=== PATIENT | female | born 1965 | race Caucasian/White ===

== ENCOUNTER 2016-12-10 14:07 | Inpatient (IN) | payer MEDICAID ==
[~2016-12-10] VITALS: Ht 167.6 cm; Wt 45.4 kg
[2016-12-10] MEDS: Potassium Chloride 20 MEQ in IV D5/ 0.9% NACL 1,000 ML IV SCH ×2 (00:13→20:30)
--- NOTE | 2016-12-10 14:10 | NUR ---
PT BIBA FOR NON-RADIATING CHEST PAIN/PRESSURE LIKE X FEW DAYS. PT CURRENTLY RECEIVED CHEMOTHERAPY AND IS AWARE THAT THAT IS AN EXPECTED SIDE EFFECT. NOTED WITH GENERALIZED WEAKNESS. PT AAOX3. SAFETY AND COMFORT MEASURES PROVIDED. WILL MONITOR.
[2016-12-10] MEDS ORDERED: ONDANSETRON HCL/PF 4 MG/2 ML VIAL ONE ×3 (14:22→23:59)
[2016-12-10] MEDS ORDERED: IV NS 0.9% 1,000 ML ONE (14:22)
[2016-12-10] MEDS ORDERED: ONDANSETRON HCL/PF 4 MG/2 ML VIAL IVP ONE (14:30)
[2016-12-10] MEDS ORDERED: IV NS 0.9% 1,000 ML BAG IV ONE (14:30)
--- NOTE | 2016-12-10 14:39 | NUR ---
PT MEDICATED ORDERED.
[2016-12-10 14:44] LABS: BASOPHILS % (AUTO) 0.9 % (0.0-2.0); EOSINOPHILS # (AUTO) 0.1 /CMM (0.0-0.7); EOSINOPHILS % (AUTO) 2.1 % (0.0-6.0); HEMATOCRIT 38 % (33-45); HEMOGLOBIN 12.4 g/dL (11.5-14.8); LYMPHOCYTES # (AUTO) 0.5 /CMM (0.8-4.8); LYMPHOCYTES % (AUTO) 16.2 % (20.0-44.0); MEAN CORPUSCULAR HEMOGLOBIN 30 PG (26.0-33.0); MEAN CORPUSCULAR HGB CONC 32 g/dl (31.0-36.0); MEAN CORPUSCULAR VOLUME 93 fL (82-100); MONOCYTES # (AUTO) 0.1 /CMM (0.1-1.30); MONOCYTES % (AUTO) 1.8 % (2.0-12.0); NEUTROPHILS # (AUTO) 2.5 /CMM (1.8-8.9); PLATELET COUNT (AUTO) 210 /CMM (150-450); RDW COEFFICIENT OF VARIATION 12.4 (11.5-15.0); RED BLOOD CELL COUNT(AUTO) 4.11 MIL/uL (4.0-5.2); WHITE BLOOD COUNT (AUTO) 3.2 K/uL (4.3-11.0)
[2016-12-10 15:05] LABS: TROPONIN I < 0.017 ng/mL (0.00-0.056)
[2016-12-10 15:09] LABS: ALANINE AMINOTRANSFERASE 7 U/L (12-78); ALBUMIN 3.4 g/dL (3.4-5.0); ALKALINE PHOSPHATASE 66 U/L (46-116); ASPARTATE AMINOTRANSFERASE 13 U/L (15-37); B-TYPE NATRIURETIC PEPTIDE 92 PG/ML (0-125); BILIRUBIN,DIRECT 0.2 mg/dL (0.0-0.2); BILIRUBIN,TOTAL 0.7 mg/dL (0.2-1.0); CALCIUM, SERUM 9.3 mg/dL (8.5-10.1); CARBON DIOXIDE 27 mmol/L (21-32); CHLORIDE 96 mmol/L (98-107); CREATININE 0.6 mg/dL (0.6-1.3); GLUCOSE 105 mg/dL (74-106); SODIUM SERUM 138 mmol/L (136-145); TOTAL PROTEIN, SERUM 6.9 g/dL (6.4-8.2); UREA NITROGEN, BLOOD 16 mg/dL (7-18)
[2016-12-10 15:13] LABS: POTASSIUM 2.7 mmol/L (3.5-5.1)
[2016-12-10] MEDS ORDERED: POTASSIUM CL. PREMIX PERIPHER. 200 ML ONE (15:17)
[2016-12-10] MEDS ORDERED: IV SET PRIMARY PUMP SET 1 EA INFUS.SET MC ONE (15:17)
[2016-12-10] MEDS ORDERED: Magnesium 1GM/D5W 100ML PREMIX 200 ML IV ONE (15:18)
[2016-12-10] MEDS ORDERED: POTASSIUM CHLORIDE 20 MEQ TAB.PRT.SR PO ONE ×2 (15:18→15:30)
[2016-12-10 15:29] LABS: D-DIMER 0.69 mg/L(FEU (0.17-0.50); PROTHROMBIN TIME 10.7 SECS (9.5-12.7)
[2016-12-10] MEDS: POTASSIUM CL. PREMIX PERIPHER. 50 ML IV SCH ×4 (15:30→22:45)
[2016-12-10] MEDS ORDERED: Magnesium 1 GM/2 ML VIAL IV ONE (15:30)
[2016-12-10 15:59] LABS: BAND % (MANUAL) 3 % (0.0-5.0); LYMPHOCYTES % (MANUAL) 15 % (16-48); MONOCYTES % (MANUAL) 2 % (0-11.0); NEUTROPHILS % (MANUAL) 80 (42-76)
[2016-12-10] MEDS ORDERED: IOHEXOL-350 100 ML VIAL IV ONE (16:25)
[2016-12-10] MEDS ORDERED: IV NS 0.9% 250 ML IV ONE ×2 (16:25→20:15)
[2016-12-10] MEDS ORDERED: CT SWABBABLE VALVE TRANS SET 1 EA INFUS.SET MC ONE (16:25)
--- NOTE | 2016-12-10 16:34 | NUR ---
PT TAKEN TO CT.
--- NOTE | 2016-12-10 17:01 | NUR ---
PAGED LORETTA RUFF.
--- NOTE | 2016-12-10 17:23 | NUR ---
REPORT GIVEN TO OLAMIDE BOLES FOR TELE ROOM 327-2.
--- NOTE | 2016-12-10 17:24 | NUR ---
ENDORSED 2 KCL BAGS TO OLAMIDE BOLES PER PROTOCOL FOR CONTINUED ADMINISTRATION.
[2016-12-10 17:30] VITALS: BP 121/84
--- NOTE | 2016-12-10 17:30 | NUR ---
TELE/DIESEL ENGINE FITTER PT. WAS ADMITTED IN STABLE CONDITION WITH VITAL SIGNS WNL. PT. IS BREATHING UNLABORED ON ROOM AIR. PT. WAS RECEIVED WITH IV FLUIDS POTASSIUM RUNNING AT 30 ML/HR AND MAGNESIUM 100ML/HR. PER ER NURSE WAS ENDORSED TO COMPLETE POTASSIUM ORDER AND WAS GIVEN 2 BAGS OF 10MEQ OF POTASSIUM. PT. WAS C/ O NAUSEA, AND RIGHT SIDED NECK PAIN.
--- NOTE | 2016-12-10 19:00 | NUR ---
MS RN INITIAL NOTE PT RECEIVED IN BED, NO S/S OF RESPIRATORY DISTRESS OR SOB. IV SITE INTACT WITH NO S/S OF INFILTRATION NOTED. SAFE ENVIRONMENT PROVIDED FREE OF CLUTTERS .BED IN LOCKED, LOW POSITION. CALL LIGHT WITHIN EASY REACH. WILL CONTINUE TO MONITOR. PER OLAMIDE BOLES SHE WILL GET AN ORDERS FROM DOCTOR
[2016-12-10 20:00] VITALS: BP 127/76
[2016-12-10] MEDS ORDERED: ZOLPIDEM TARTRATE 5 MG TABLET PO PRN (20:00)
[2016-12-10] MEDS ORDERED: ACETAMINOPHEN 650 MG/20.3 ML UDC NG PRN (20:00)
[2016-12-10] MEDS ORDERED: HYDROMORPHONE 1 MG/1 ML DISP.SYRIN ONE ×2 (20:14→23:58)
[2016-12-10] MEDS: ONDANSETRON HCL/PF 4 MG/2 ML VIAL IV PRN (20:22)
--- NOTE | 2016-12-10 20:24 | NUR ---
TELERN 2ND DOSE OF POTASSIUM BOLUS BAR CODED. WAS NOT BARCODED BY ER. PATIENT CAME WITH K INFUSING. INFORMED ER. ORDERS RECEIVED FROM DR. CROOK BY RN TO CONTINUE POTASSIUM PREMIX TOTAL OF 40 MEQ. ENDORSED TO INCOMING RN.
--- NOTE | 2016-12-10 20:31 | NUR ---
TELE/RN CLOSING NOTES CALLED DR. CROOK FOR NEW ADMISSION ORDERS. NEW PHONE ORDERS WERE GIVEN, AND INPUT INTO PT.'S CHART, AND IN EMAR. PT. IS ON TELE MONITOR READING SINUS RHYTHM 86 BPM. PT. IS AWAKE, A&OX4. BREATHING UNLABORED ON ROOM AIR. PT. HAS LEFT IV ACCESS RIGHT ANTECUBITAL SITE. NO S/S OF ACUTE DISTRESS. BED IS IN LOW POSITION, 2 SIDE RAILS UP, AND CALL LIGHT WITHIN REACH. WILL ENDORSE REPORT TO PATIENT SERVICE REPRESENTATIVE NURSE.
[2016-12-10] MEDS: HYDROMORPHONE 1 MG/1 ML DISP.SYRIN IV PRN (20:37)
[2016-12-10] MEDS: PANTOPRAZOLE 40 MG VIAL IV SCH (21:05)
[2016-12-10] MEDS ORDERED: KCL IV ONE (23:13)
[2016-12-10] MEDS ORDERED: NS IV ONE (23:13)
[2016-12-10] MEDS ORDERED: IV PREMIX D5 NS + KCL 1,000 ML IV ONE (23:55)
[2016-12-11] VITALS (7 sets, daily range): BP systolic 116–131; BP diastolic 69–84
[2016-12-11] MEDS: HYDROMORPHONE 1 MG/1 ML DISP.SYRIN IV PRN ×4 (00:09→20:51)
[2016-12-11] MEDS: Potassium Chloride 20 MEQ in IV D5/ 0.9% NACL 1,000 ML IV SCH ×2 (00:16→04:35)
--- NOTE | 2016-12-11 00:16 | NUR ---
D5 NS 0.9% SODIUM CHLORIDE WITH 20 MEQ OF K WAS ADMINISTERED AT 0016 PATIENT GOT HER 2 BAGS OF K PRIOR GIVING 1000L Addendum: 12/11/16 at 0350 by RAGINI SIMENTAL RN ADDENDUM: RUNNING AT 125 MLS/HR
[2016-12-11] MEDS: ONDANSETRON HCL/PF 4 MG/2 ML VIAL IV PRN ×5 (00:38→20:50)
[2016-12-11] MEDS ORDERED: HYDROMORPHONE 1 MG/1 ML DISP.SYRIN ONE (03:59)
[2016-12-11] MEDS ORDERED: ONDANSETRON HCL/PF 4 MG/2 ML VIAL ONE (04:00)
--- NOTE | 2016-12-11 05:02 | NUR ---
SYSTEMS AUDITOR NOTES NON ADMINISTRATION OF 1000L 1 BAG IV D5NS W/ K 20 MEQ DUE AT 0435, STILL INFUSING 1ST BAG 125 CC/HR THAT WAS TRANSFUSE AT 0016. WILL INFORMED THE PHARMACY, WAS DELAYED BECAUSE OF THE BOLUS OF POTASSIUM
--- NOTE | 2016-12-11 06:35 | NUR ---
PATIENT SUPPORT TECH CLOSING NOTES PATIENT COMFORTABLY IN BED ASLEEP AND EASILY AWAKEN, HEAD OF BED ELEVATED FOR BETTER LUNG EXPANSION AND GOOD CIRCULATION.ALERT AND VERBALLY X 4 ON D5NS W/ K 20 MEQ RUNNING AT 125MLS/HR. IV SITE INTACT WITH NO S.S OF INFILTRATION NOTED. NO S/S OF ACUTE DISTRESS. TOLERATING ROOM AIR 02 SAT 98 R.A RESPONDS APPROPRIATELY TO VERBAL STIMULI, RESPIRATIONS EVEN UNLABORED BREATH SOUNDS.PATIENT IN STABLE CONDITION WITH NO SOB NO S/S OF ACUTE DISTRESS SAFE HAZARD FREE ENVIRONMENT. NEEDS ATTENDED AND ANTICIPATED, NURSING CARE RENDERED, KEPT CLEAN AND DRY AND COMFORTABLE. ALL DUE MEDS WAS GIVEN. BED LOWERED AND LOCKED, SR X2 FOR SAFETY AND WILL ENDORSE CONTINUE PLAN OF CARE. ATTACH TO RECREATIONAL THERAPY TECHNICIAN, SR 71'S WITH 1ST AVB
[2016-12-11 06:42] LABS: BASOPHILS % (AUTO) 0.2 % (0.0-2.0); EOSINOPHILS % (AUTO) 2.3 % (0.0-6.0); HEMATOCRIT 34 % (33-45); HEMOGLOBIN 11.6 g/dL (11.5-14.8); LYMPHOCYTES # (AUTO) 0.3 /CMM (0.8-4.8); LYMPHOCYTES % (AUTO) 17.1 % (20.0-44.0); MEAN CORPUSCULAR HEMOGLOBIN 32 PG (26.0-33.0); MEAN CORPUSCULAR HGB CONC 35 g/dl (31.0-36.0); MEAN CORPUSCULAR VOLUME 92 fL (82-100); MONOCYTES # (AUTO) 0.1 /CMM (0.1-1.30); MONOCYTES % (AUTO) 4.3 % (2.0-12.0); NEUTROPHILS # (AUTO) 1.5 /CMM (1.8-8.9); NEUTROPHILS % (AUTO) 76.1 % (43.0-81.0); PLATELET COUNT (AUTO) 143 /CMM (150-450); RED BLOOD CELL COUNT(AUTO) 3.65 MIL/uL (4.0-5.2)
[2016-12-11 06:57] LABS: CALCIUM, SERUM 8.5 mg/dL (8.5-10.1); CREATININE 0.4 mg/dL (0.6-1.3)
[2016-12-11 07:25] LABS: POTASSIUM 2.8 mmol/L (3.5-5.1)
[2016-12-11 07:46] LABS: BAND % (MANUAL) 2 % (0.0-5.0); EOSINOPHILS % (MANUAL) 1 % (0-4); LYMPHOCYTES % (MANUAL) 18 % (16-48); MONOCYTES % (MANUAL) 8 % (0-11.0); NEUTROPHILS % (MANUAL) 71 (42-76)
[2016-12-11] MEDS ORDERED: MORP30TA7 PO (07:46)
[2016-12-11] MEDS ORDERED: OXYC1TAB72 PO (07:46)
--- NOTE | 2016-12-11 08:13 | NUR ---
TELE/RN OPENING NOTES PT. IS IN BED A&OX4. TELE MONITOR READING SINUS RHYTHM 66 BPM WITH OCCASIONAL BORDERLINE 1ST DEGREE AV BLOCK. BREATHING UNLABORED ON ROOM AIR. NO S/S OF ACUTE DISTRESS. IV FLUIDS RUNNING AT 125 ML/HR ON LEFT ANTECUBITAL SITE. LAB CALLED TO REPORT LOW POTASSIUM LEVEL, MD IS AWARE, AND PUT IN NEW ORDERS FOR POTASSIUM REPLACEMENT. PT.'S WBC IS 2.O, MD AWARE NO NEW ORDERS GIVEN, PER MD LOW WBC COUNT IS DUE TO CHEMOTHERAPY. BED IS IN LOW POSITION, 2 SIDE RAILS UP, AND CALL LIGHT IS WITHIN REACH. WILL CONTINUE TO ASSESS AND MONITOR.
[2016-12-11] MEDS ORDERED: IV SET PRIMARY PUMP SET 1 EA INFUS.SET MC ONE ×3 (11:37→17:42)
[2016-12-11] MEDS ORDERED: SECONDARY IV SET 1 EA INFUS.SET MC ONE ×2 (11:39→17:42)
[2016-12-11] MEDS ORDERED: IV NS 0.9% 250 ML IV ONE ×3 (11:39→18:42)
[2016-12-11] MEDS: Magnesium 1GM/D5W 100ML PREMIX 100 ML IV SCH ×2 (12:36→13:40)
[2016-12-11] MEDS: POTASSIUM CL. PREMIX PERIPHER. 50 ML IV SCH ×8 (12:36→21:56)
--- NOTE | 2016-12-11 19:25 | NUR ---
TELE/RN OPENING NOTES PT. IS IN BED A&OX4. TELE MONITOR READING SINUS RHYTHM 69 BPM. BREATHING UNLABORED ON ROOM AIR. NO S/S OF ACUTE DISTRESS. IV ACCESS IS PATENT AND INTACT ON LEFT ANTECUBITAL SITE. REPLACED 5 BAGS OF POTASSIUM, WILL ENDORSE TO STERILIZATION TECHNICIAN NURSE TO ADDITIONAL 3 BAGS TO COMPLETE ORDER. BED IS IN LOW POSITION, 2 SIDE RAILS UP, AND CALL LIGHT IS WITHIN REACH. Addendum: 12/11/16 at 1930 by OLAMIDE FISH RN TELE/RN CLOSING NOTES
--- NOTE | 2016-12-11 19:30 | NUR ---
MEDICAL SUPPORT SPECIALIST NOTE RECEIVED PATIENT FROM DAY SHIFT, PATIENT IS ALERT AND ORIENTEDX4, NO S/S OF RESPIRATORY DISTRESS OR PAIN AT THIS TIME. IV ON LEFT AC IS PATENT AND INTACT, POTASSIUM SUPPLEMENT IS RUNNING. TELE SR 66. SRX2, BED IN LOW POSITION, CALL LIGHT WITHIN REACH, WILL CONTINUE TO MONITOR PATIENT.
[2016-12-11] MEDS: PANTOPRAZOLE 40 MG VIAL IV SCH (19:46)
[2016-12-12] VITALS (7 sets, daily range): BP systolic 121–149; BP diastolic 69–94
[2016-12-12] MEDS: ONDANSETRON HCL/PF 4 MG/2 ML VIAL IV PRN ×6 (00:52→21:59)
[2016-12-12] MEDS: HYDROMORPHONE 1 MG/1 ML DISP.SYRIN IV PRN ×6 (00:52→21:59)
[2016-12-12] MEDS: Potassium Chloride 20 MEQ in IV D5/ 0.9% NACL 1,000 ML IV PRN ×2 (00:54→07:09)
--- NOTE | 2016-12-12 06:53 | NUR ---
DENTAL ASSOCIATE NOTE PATIENT IS RESTING IN BED COMFORTABLY, NO S/S OF RESPIRATORY DISTRESS OR PAIN AT THIS TIME .IV ON LEFT AC IS PATENT AND INTACT, FLUID IS RUNNING. TELE MONITOR SR 73. WILL ENDORSE TO DAY SHIFT FOR TRESA.
--- NOTE | 2016-12-12 07:15 | NUR ---
OPTOELECTRONIC TECHNICIAN NOTES RECEIVED PATIENT IN BED, AWAKE. A/O X4. APPEARS PALE, TOLERATING ROOM AIR, NO SOB. SINUS RHYTHM ON TELE MONITOR. IV IN LEFT AC G20 PATENT AND INTACT, ON IV D5 NS + KCL 20 MEQ INFUSING AT 125ML/HR. CALL LIGHT WITHIN REACH. WILL CONT TO MONITOR.
[2016-12-12 07:17] LABS: BASOPHILS % (AUTO) 0.4 % (0.0-2.0); EOSINOPHILS # (AUTO) 0.1 /CMM (0.0-0.7); EOSINOPHILS % (AUTO) 2.8 % (0.0-6.0); HEMATOCRIT 31 % (33-45); HEMOGLOBIN 10.8 g/dL (11.5-14.8); LYMPHOCYTES # (AUTO) 0.4 /CMM (0.8-4.8); LYMPHOCYTES % (AUTO) 21.8 % (20.0-44.0); MEAN CORPUSCULAR HEMOGLOBIN 32 PG (26.0-33.0); MEAN CORPUSCULAR HGB CONC 35 g/dl (31.0-36.0); MEAN CORPUSCULAR VOLUME 92 fL (82-100); MONOCYTES # (AUTO) 0.2 /CMM (0.1-1.30); MONOCYTES % (AUTO) 10.5 % (2.0-12.0); NEUTROPHILS # (AUTO) 1.2 /CMM (1.8-8.9); NEUTROPHILS % (AUTO) 64.5 % (43.0-81.0); PLATELET COUNT (AUTO) 103 /CMM (150-450); RED BLOOD CELL COUNT(AUTO) 3.37 MIL/uL (4.0-5.2)
[2016-12-12 07:21] LABS: CREATININE 0.3 mg/dL (0.6-1.3); MAGNESIUM 1.5 mg/dL (1.8-2.4); POTASSIUM 2.9 mmol/L (3.5-5.1)
[2016-12-12 07:29] LABS: WHITE BLOOD COUNT (AUTO) 1.9 K/uL (4.3-11.0)
[2016-12-12 08:34] LABS: BAND % (MANUAL) 6 % (0.0-5.0); EOSINOPHILS % (MANUAL) 4 % (0-4); LYMPHOCYTES % (MANUAL) 10 % (16-48); MONOCYTES % (MANUAL) 7 % (0-11.0); NEUTROPHILS % (MANUAL) 73 (42-76)
[2016-12-12] MEDS ORDERED: PANT40TA2 PO (09:20)
[2016-12-12] MEDS ORDERED: ONDA4TAB5 PO (09:21)
[2016-12-12] MEDS: Magnesium 1GM/D5W 100ML PREMIX 100 ML IV SCH ×2 (09:37→10:47)
[2016-12-12] MEDS ORDERED: SECONDARY IV SET 1 EA INFUS.SET MC ONE (09:37)
--- NOTE | 2016-12-12 09:48 | NUR ---
PATIENT IS SEEN BY DR. CROOK TODAY. REVIEWED CURRENT LAB RESULT WITH DR. CROOK, WILL REPLACE POTASSIUM AND MAGNESIUM TODAY, PER MD TO CHECK POTASSIUM LEVEL AT 2PM AND CALL HIM WITH RESULT. ALSO PER DR. CROOK PATIENT CAN GO HOME TODAY IF PATIENT TOLERATES FOOD AND NO NAUSEA AND VOMITING. PATIENT IS AWARE, WILL NOTIFY MD.
[2016-12-12] MEDS ORDERED: POTASSIUM CHLORIDE 20 MEQ TAB.PRT.SR PO SCH (10:00)
[2016-12-12] MEDS ORDERED: IV SET PRIMARY PUMP SET 1 EA INFUS.SET MC ONE (10:59)
[2016-12-12] MEDS: POTASSIUM CL. PREMIX PERIPHER. 50 ML IV SCH ×8 (12:08→19:59)
[2016-12-12] MEDS ORDERED: IV NS 0.9% 250 ML IV ONE ×2 (12:29→16:58)
--- NOTE | 2016-12-12 12:30 | NUR ---
PATIENT UNABLE TO TOLERATE PART OF THE SOFT DIET, C/O NAUSEA. PROVIDED SHERBERT, ICE TEA, AND CUP OF SLICES FRUITS PER PATIENT'S PREFERENCE AT THIS TIME. WILL CONT TO MONITOR.
[2016-12-12 14:38] LABS: CALCIUM, SERUM 8.3 mg/dL (8.5-10.1); CREATININE 0.3 mg/dL (0.6-1.3); POTASSIUM 3.2 mmol/L (3.5-5.1)
--- NOTE | 2016-12-12 15:06 | NUR ---
PATIENT IS SEEN BY CHANTELLE, PATIENT WILL START ON SMALL 6 MEALS.
--- NOTE | 2016-12-12 16:19 | NUR ---
CALLED SPOKE TO DR. CROOK WITH REPEAT BMP RESULT, POTASSIUM LEVEL 2.9 AND 4 MORE BAG OF POTASSIUM CHLORIDE TO BE INFUSED. PER DR. CROOK, CONTINUE MAIN IVF D5 NS + KCL 20 MEQ AFTER INFUSING POTASSIUM SUPP THEN BMP IN AM, PATIENT MAY DISCHARGE TOMORROW 12/13/16. INFORMED CHARGE NURSE, PATIENT MADE AWARE.
--- NOTE | 2016-12-12 18:32 | NUR ---
AGRISCIENCE TECHNOLOGY INSTRUCTOR CLOSING NOTES PATIENT IN BED, NOT IN DISTRESS. PAIN IS CONTROLLED DURING THE SHIFT, MEDICATED WITH PRN MEDS ORDERED. STILL WITH POOR APPETITE, WITH EPISODE OF VOMITING AND NAUSEA. REPLACING POTASSIUM ORDERED, AND WILL CONT MAIN IVF AFTER COMPLETING POTASSIUM REPLACEMENT. PATIENT TO BE DISCHARGED HOME TOMORROW 12/13/16, WILL ENDORSE TO FOOD PREPARER RN FOR CONTINUITY.
--- NOTE | 2016-12-12 19:30 | NUR ---
POWER BALLAST MACHINE OPERATOR NOTE RECEIVED PATIENT FROM DAY SHIFT, PATIENT IS ALERT AND ORIENTEDX4, NO S/S OF RESPIRATORY DISTRESS OR PAIN AT THIS TIME. IV ON LEFT FA IS PATENT AND INTACT, POTASSIUM SUPPLEMENT IS RUNNING. TELE SR 69. SRX2, BED IN LOW POSITION, CALL LIGHT WITHIN REACH, WILL CONTINUE TO MONITOR PATIENT.
[2016-12-12] MEDS: PANTOPRAZOLE 40 MG VIAL IV SCH (19:59)
[2016-12-13] VITALS: BP 122/80
[2016-12-13] MEDS: ONDANSETRON HCL/PF 4 MG/2 ML VIAL IV PRN ×4 (02:00→14:39)
[2016-12-13] MEDS: HYDROMORPHONE 1 MG/1 ML DISP.SYRIN IV PRN ×4 (02:00→14:39)
[2016-12-13 04:00] VITALS: BP 121/65
[2016-12-13] MEDS: Potassium Chloride 20 MEQ in IV D5/ 0.9% NACL 1,000 ML IV PRN (06:00)
--- NOTE | 2016-12-13 06:38 | NUR ---
PERFORMING ARTS ROAD MANAGER NOTE PATIENT IS RESTING IN BED COMFORTABLY, NO S/S OF RESPIRATORY DISTRESS OR PAIN AT THIS TIME. IV ON LEFT FA IS PATENT AND INTACT, FLUID IS RUNNING. TELE MONITOR SR 72. WILL ENDORSE TO DAY SHIFT FOR TRESA.
[2016-12-13 07:31] LABS: BASOPHILS % (AUTO) 0.5 % (0.0-2.0); EOSINOPHILS % (AUTO) 2.6 % (0.0-6.0); HEMATOCRIT 32 % (33-45); HEMOGLOBIN 10.8 g/dL (11.5-14.8); LYMPHOCYTES # (AUTO) 0.4 /CMM (0.8-4.8); MEAN CORPUSCULAR HEMOGLOBIN 32 PG (26.0-33.0); MEAN CORPUSCULAR HGB CONC 34 g/dl (31.0-36.0); MEAN CORPUSCULAR VOLUME 93 fL (82-100); MONOCYTES # (AUTO) 0.3 /CMM (0.1-1.30); MONOCYTES % (AUTO) 20.1 % (2.0-12.0); NEUTROPHILS # (AUTO) 0.9 /CMM (1.8-8.9); NEUTROPHILS % (AUTO) 53.8 % (43.0-81.0); PLATELET COUNT (AUTO) 91 /CMM (150-450); RDW COEFFICIENT OF VARIATION 12.8 (11.5-15.0); RED BLOOD CELL COUNT(AUTO) 3.42 MIL/uL (4.0-5.2)
--- NOTE | 2016-12-13 07:47 | NUR ---
OIL EXPLORATION ENGINEER NOTES PATIENT IN BED, A/O 4, VERBALLY RESPONSIVE. NO APPARENT DISTRESS NOTED, DENIES PAIN DENIES SOB. ON TELE MONITORING SR 64. IV LINE ON LEFT FOREARM PATENT AND INTACT. ALL NEEDS MET, CALL LIGHT WITHIN REACH.
[2016-12-13 07:59] LABS: CALCIUM, SERUM 8.5 mg/dL (8.5-10.1); CREATININE 0.4 mg/dL (0.6-1.3)
[2016-12-13 08:00] VITALS: BP 118/73
[2016-12-13 08:00] LABS: WHITE BLOOD COUNT (AUTO) 1.7 K/uL (4.3-11.0)
[2016-12-13 10:10] LABS: EOSINOPHILS % (MANUAL) 1 % (0-4); LYMPHOCYTES % (MANUAL) 11 % (16-48); MONOCYTES % (MANUAL) 15 % (0-11.0); NEUTROPHILS % (MANUAL) 73 (42-76)
--- NOTE | 2016-12-13 17:05 | NUR ---
RN MS CLOSING NOTES PATIENT LEFT, IN STABLE CONDITION, VIA PRIVATE CAR. PATIENT ABLE TO AMBULATE ON HER OWN, NO APPARENT DISTRESS NOTED, DENIES PAIN, DENIES SOB. ALL DUE MEDS GIVEN, ALL NEEDS MET, KEPT CLEAN AND DRY. SKIN CLEAR AND INTACT. DISCHARGE INSTRUCTIONS REVIEWED WITH PATIENT SHE STATED UNDERSTANDING. EXIT CARE USED TO PROVIDE EDUCATIONAL MATERIAL. PRESCRIPTION GIVEN TO PATIENT. BELONGINGS LIST SIGNED, ALL BELONGINGS ACCOUNTED FOR. IV LINE DISCONTINUED NO S/S OF INFILTRATION NOTED.
[2016-12-14] MEDS ORDERED: PANTOPRAZOLE 40 MG/PACK PACK GT SCH (09:00)
== END 2016-12-13 15:30 | DRG 422 ==
LOC: ER 14:09 → TELE 17:15 → MED 12-13 10:16
PROVIDERS: ADMIT Internal Medicine; ATTEND Internal Medicine
DX: E86.0 Dehydration (principal); C49.9 Malignant neoplasm of connective and soft tissue, unspecified; I10 Essential (primary) hypertension; D72.819 Decreased white blood cell count, unspecified; E87.6 Hypokalemia; T45.1X5A Adverse effect of antineoplastic and immunosuppressive drugs, initial encounter; Y92.89 Other specified places as the place of occurrence of the external cause; R07.9 Chest pain, unspecified; E83.42 Hypomagnesemia
CPT/HCPCS: 36415; 71010-TC; 80048-TC; 80076-TC; 83735-TC; 83880; 84484-TC; 85025-TC; 85378-TC; 85730-TC; 87081-TC; A4606; C9113; J1170; J2405; J3475; J3480; J3490; J7030; J7042; J7050; Q9967; Z7610